=== PATIENT | female | born 1965 | race Two or more races ===

== ENCOUNTER 2023-03-14 12:40 | Emergency (ER) | payer OTHER ==
[~2023-03-14] VITALS: Ht 180.3 cm; Wt 68.0 kg
[2023-03-14] MEDS ORDERED: NEURONTIN300 MG PO (14:03)
== END 2023-03-14 14:20 | disposition home or self-care (01) ==
LOC: ER 12:40
DX: M12.522 Traumatic arthropathy, left elbow (principal); W19.XXXA Unspecified fall, initial encounter; Y93.89 Activity, other specified; Y92.89 Other specified places as the place of occurrence of the external cause; W19.XXXS Unspecified fall, sequela

== ENCOUNTER 2023-07-14 12:13 | Outpatient (CLI) | payer OTHER ==
[~2023-07-14 12:13] MED LIST: NEURONTIN300 MG PO
== END 2023-07-14 13:25 | disposition home or self-care (01) ==
LOC: SONOGRAMA 12:13
PROVIDERS: ATTEND Family Medicine
DX: E04.1 Nontoxic single thyroid nodule (principal)